=== PATIENT | female | born 1940 | race Caucasian/White ===

== ENCOUNTER 2019-03-20 19:24 | Inpatient (IN) | payer OTHER ==
[~2019-03-20] VITALS: Ht 157.5 cm; Wt 58.6 kg
[2019-03-20 23:10] VITALS: Ht 157.5 cm; Wt 58.6 kg
[2019-03-20 23:20] VITALS: BP 136/65; PULSE 74; RESP 18
[2019-03-20] MEDS ORDERED: ASPI-535 PO (23:31)
[2019-03-20] MEDS ORDERED: METF500T24 PO (23:31)
[2019-03-20] MEDS ORDERED: METO-448 PO (23:31)
[2019-03-20] MEDS ORDERED: LOSA50TA14 PO (23:31)
[2019-03-21] MEDS ORDERED: hydrALAzine 20 MG INJ IV PRN
[2019-03-21] MEDS ORDERED: ONDANSETRON 4 MG INJ IV PRN
[2019-03-21] MEDS ORDERED: ACETAMINOPHEN 325 MG TAB PO PRN
[2019-03-21] MEDS ORDERED: KETOROLAC 15 MG INJ IV PRN
[2019-03-21] MEDS: SOD CHLORIDE 0.9% 1,000 ML IV SCH ×3 (00:48→16:03)
[2019-03-21] MEDS: CEFTRIAXONE 1 GM/50 ML (PMX) 50 ML IVPB SCH ×2 (00:48→23:07)
[2019-03-21] MEDS: morphine 2 MG INJ IV PRN (00:49)
[2019-03-21] MEDS ORDERED: GLUCOSE GEL 15 GRAM TUBE BUCCAL PRN (01:00)
[2019-03-21] MEDS ORDERED: GLUCAGON 1 MG INJ IM PRN (01:00)
[2019-03-21] MEDS ORDERED: GLUCOSE GEL 15 GRAM TUBE PO PRN ×2 (01:00)
[2019-03-21] MEDS ORDERED: DEXTROSE 50% 50 ML SYRINGE IV PRN ×2 (01:00)
[2019-03-21 01:25] VITALS: BP 119/58; PULSE 65; RESP 18
[2019-03-21] MEDS: ACCU-CHEK XX SCH (02:00)
[2019-03-21] MEDS: PANTOPRAZOLE 40 MG INJ IV SCH (06:33)
[2019-03-21 07:55] VITALS: BP 140/65; PULSE 66; RESP 18
[2019-03-21] MEDS: INSULIN ASPART [NOVOLOG] 3 ML PEN SC SCH ×4 (08:00→21:00)
[2019-03-21] MEDS: METOPROLOL 25 MG TAB PO SCH ×3 (08:22→21:08)
[2019-03-21] MEDS ORDERED: ASPIRIN (EC) 81 MG TAB PO SCH (09:00)
--- NOTE | 2019-03-21 12:55 | QN ---
Documentation Comment SEEN AND EXAMINED DOM VIZCAINO MD Mar 21, 2019 12:55
[2019-03-21 13:43] VITALS: BP 124/60; PULSE 72; RESP 18
--- NOTE | 2019-03-21 13:48 | CONS ---
Assessment/Plan Assessment/Plan Hospital Course (Demo Recall) 78-year-old female was visiting her daughter at [facility] and developed severe right flank pain. They took her to the emergency room and underwent a CT scan of the abdomen and pelvis and that showed a right proximal ureteral stone measuring 8 x 7 mm causing moderate right hydroureteronephrosis and right perinephric fat stranding. Patient was transferred to [facility] because of her insurance. The patient states that she also had nausea and vomiting she denies any hematuria she did have a kidney stones before but they were small and she said she passed them. Impression right upper ureteral stone very close to the ureteropelvic junction. Plan: KUB, strain the urine, pain medications, antibiotic. May have to do ureteroscopy and laser lithotripsy and/or extracorporeal shockwave lithotripsy to the stone. Consultation Date/Type/Reason Admit Date/Time Mar 20, 2019 at 22:49 Date of Consultation: Mar 21, 2019 Type of Consult Urology Reason for Consultation Right upper ureteral stone Requesting Provider: DOM VIZCAINO MD Date/Time of Note DATE: 03/21/19 TIME: 13:39 Hx of Present Illness 78-year-old female was visiting her daughter at [facility] and developed severe right flank pain. They took her to the emergency room and underwent a CT scan of the abdomen and pelvis and that showed a right proximal ureteral stone measuring 8 x 7 mm causing moderate right hydroureteronephrosis and right perinephric fat stranding. Patient was transferred to [facility] because of her insurance. The patient states that she also had nausea and vomiting she denies any hematuria she did have a kidney stones before but they were small and she said she passed them. Constitutional: no complaints Eyes: other (History of left eye surgery question retinal detachment) ENT: no complaints Respiratory: no complaints Cardiovascular: no complaints, other (History of cardiac arrhythmias) Gastrointestinal: no complaints Genitourinary: flank pain (Right side) Musculoskeletal: no complaints Skin: no complaints Neurologic: no complaints Endocrine: no complaints Lymphatic: no complaints Immunologic: no complaints Past Medical History Medical History: diabetes, hypertension, other (Cardiac arrhythmias) Home Meds Reported Medications Aspirin Ec (Aspir 81) 81 Mg Tablet.dr, 81 MG PO DAILY, #30 TAB 03/20/19 Metformin Hcl* (Metformin Hcl*) 500 Mg Tablet, 500 MG PO WITH BREAKFAST DINNE, #60 TAB 03/20/19 Losartan Potassium* (Losartan Potassium*) 50 Mg Tablet, 50 MG PO DAILY, TAB 03/20/19 Metoprolol Tartrate* (Lopressor*) 25 Mg Tab, 12.5 MG PO BID, #60 TAB 03/20/19 Medications Current Medications Acetaminophen (Tylenol Tab) 650 mg Q4H PRN PO MILD PAIN(1-3)OR ELEVATED TEMP; Start 03/21/19 at 00:00 Ondansetron HCl (Zofran Inj) 4 mg Q6H PRN IV NAUSEA AND/OR VOMITING Last administered on 03/21/19at 00:48; Admin Dose 4 MG; Start 03/21/19 at 00:00 Morphine Sulfate (morphine) 2 mg Q4H PRN IV SEVERE PAIN LEVEL 7-10 Last a dministered on 03/21/19at 00:49; Admin Dose 2 MG; Start 03/21/19 at 00:00 Pantoprazole (Protonix Iv) 40 mg DAILY@06 IV Last administered on 03/21/19at 06:33; Admin Dose 40 MG; Start 03/21/19 at 06:00 Ceftriaxone Sodium 50 ml @ 100 mls/hr Q24H IVPB Last administered on 03/21/19at 00:48; Admin Dose 100 MLS/HR; Start 03/21/19 at 00:00 Sodium Chloride 1,000 ml @ 70 mls/hr [id number] IV Last administered on 03/21/19at 00:48; Admin Dose 70 MLS/HR; Start 03/21/19 at 00:00 Hydralazine HCl (Apresoline) 10 mg Q6 PRN IV SBP above 170; Start 03/21/19 at 00:00 Diagnostic Test (Pha) (Accu-Chek) 1 ea 02 XX ; Start 03/21/19 at 02:00 Insulin Aspart (Novolog Insulin Pen) NOVOLOG *MILD* ALGORITHM WITH MEALS BE DTIME SC ; Start 03/21/19 at 08:00 Metoprolol Tartrate (Lopressor) 12.5 mg BID PO Last administered on 03/21/19at 08:22; Admin Dose 12.5 MG; Start 03/21/19 at 09:00 Miscellaneous Information 1 ea NOTE XX ; Start 03/21/19 at 01:00 Glucose (Glutose) 15 gm Q15M PRN PO DECREASED GLUCOSE; Start 03/21/19 at 01:00 Glucose (Glutose) 22.5 gm Q15M PRN PO DECREASED GLUCOSE; Start 03/21/19 at 01:00 Dextrose (D50w Syringe) 25 ml Q15M PRN IV DECREASED GLUCOSE; Start 03/21/19 at 01:00 Dextrose (D50w Syringe) 50 ml Q15M PRN IV DECREASED GLUCOSE; Start 03/21/19 at 01:00 Glucagon (Glucagen) 1 mg Q15M PRN IM DECREASED GLUCOSE; Start 03/21/19 at 01:00 Glucose (Glutose) 15 gm Q15M PRN BUCCAL DECREASED GLUCOSE; Start 03/21/19 at 01:00 Tamsulosin HCl (Flomax) 0.4 mg HS PO ; Start 03/21/19 at 21:00 Aspirin (Halfprin) 81 mg DAILY PO ; Start 03/21/19 at 21:00 Allergies: Coded Allergies: No Known Allergy (Unverified , 03/21/19) Past Surgical History Past Surgical Hx: other (Hysterectomy for fibroid left eye surgery for retinal detachment and right foot surgery for bunions) Social History Alcohol Use: none Smoking Status: Never smoker Other Social History She is a 4 para 2 one daughter of breast cancer in 2012 and she had one and 3 normal deliveries Exam/Review of Systems Exam Vitals Vital Signs Date Temp Pulse Resp B/P (MAP) Pulse Ox O2 O2 Flow FiO2 Time Delivery Rate 03/21/19 98.4 66 18 140/65 93 07:55 (90) Intake and Output 03/20/19 03/20/19 03/21/19 1414:59 22:59 06:59 IntakeIntake Total 315 ml BalanceBalance 315 ml Constitutional: alert, oriented Psych: no complaints Head: normocephalic Eyes: nl conjunctiva ENMT: nl external ears & nose Neck: supple, non-tender Respiratory: normal air movement; No wheezing Cardiovascular: No jugular venous distention (JVD) Gastrointestinal: soft Genitourinary - Female: CVA tenderness (Right side) Musculoskeletal: nl extremities to inspection Extremities: No calf tenderness Neurological: nl mental status Skin: nl turgor Lymph: nl lymph nodes Results Result Diagram: 03/21/19 0507 03/21/19 0507 Results 24hrs Laboratory Tests Test 03/21/19 05:07 03/21/19 07:59 03/21/19 12:47 White Blood Count 9.4 Red Blood Count 3.54 L Hemoglobin 10.7 L Hematocrit 32.7 L Mean Corpuscular Volume 92.4 Mean Corpuscular Hemoglobin 30.2 Mean Corpuscular Hemoglobin Concent 32.7 Red Cell Distribution Width 13.1 Platelet Count 233 Mean Platelet Volume 11.2 H Immature Granulocytes % 0.300 Neutrophils % 72.1 Lymphocytes % 18.9 Monocytes % 8.2 Eosinophils % 0.3 Basophils % 0.2 Nucleated Red Blood Cells % 0.0 Immature Granulocytes # 0.030 Neutrophils # 6.8 Lymphocytes # 1.8 Monocytes # 0.8 Eosinophils # 0.0 Basophils # 0.0 Nucleated Red Blood Cells # 0.0 Sodium Level 141 Potassium Level 3.6 Chloride Level 108 Carbon Dioxide Level 27 Anion Gap 6 Blood Urea Nitrogen 27 H Creatinine 1.30 H Est Glomerular Filtrat Rate mL/min Glucose Level 126 Hemoglobin A1c 5.8 Calcium Level 9.3 Total Bilirubin 1.0 Direct Bilirubin 0.00 Indirect Bilirubin 1.0 Aspartate Amino Transf (AST/SGOT) 22 Alanine Aminotransferase (ALT/SGPT) 21 Alkaline Phosphatase 50 Total Protein 6.3 Albumin 3.3 Globulin 3.00 Albumin/Globulin Ratio 1.10 Bedside Glucose [address] scan of the abdomen and pelvis done at [facility] showed right proximal ureteral 8 x 7 mm calculus causing moderate right hydroureteronephrosis and right perinephric fat stranding. Bilateral renal cysts and too small to characterize lesions with the largest on the right 3 cm in the right lower pole renal 5 mm nonobstructing calculus is also seen to the arteries severe tortuosity with mild calcification. Medications Medication Current Medications Acetaminophen (Tylenol Tab) 650 mg Q4H PRN PO MILD PAIN(1-3)OR ELEVATED TEMP; Start 03/21/19 at 00:00 Ondansetron HCl (Zofran Inj) 4 mg Q6H PRN IV NAUSEA AND/OR VOMITING Last administered on 03/21/19at 00:48; Admin Dose 4 MG; Start 03/21/19 at 00:00 Morphine Sulfate (morphine) 2 mg Q4H PRN IV SEVERE PAIN LEVEL 7-10 Last administered on 03/21/19at 00:49; Admin Dose 2 MG; Start 03/21/19 at 00:00 Pantoprazole (Protonix Iv) 40 mg DAILY@06 IV Last administered on 03/21/19at 06:33; Admin Dose 40 MG; Start 03/21/19 at 06:00 Ceftriaxone Sodium 50 ml @ 100 mls/hr Q24H IVPB Last administered on 03/21/19at 00:48; Admin Dose 100 MLS/HR; Start 03/21/19 at 00:00 Sodium Chloride 1,000 ml @ 70 mls/hr [id number] IV Last administered on 03/21/19at 00:48; Admin Dose 70 MLS/HR; Start 03/21/19 at 00:00 Hydralazine HCl (Apresoline) 10 mg Q6 PRN IV SBP above 170; Start 03/21/19 at 00:00 Diagnostic Test (Pha) (Accu-Chek) 1 ea 02 XX ; Start 03/21/19 at 02:00 Insulin Aspart (Novolog Insulin Pen) NOVOLOG *MILD* ALGORITHM WITH MEALS BEDTIME SC ; Start 03/21/19 at 08:00 Metoprolol Tartrate (Lopressor) 12.5 mg BID PO Last administered on 03/21/19at 08:22; Admin Dose 12.5 MG; Start 03/21/19 at 09:00 Miscellaneous Information 1 ea NOTE XX ; Start 03/21/19 at 01:00 Glucose (Glutose) 15 gm Q15M PRN PO DECREASED GLUCOSE; Start 03/21/19 at 01:00 Glucose (Glutose) 22.5 gm Q15M PRN PO DECREASED GLUCOSE; Start 03/21/19 at 01:00 Dextrose (D50w Syringe) 25 ml Q15M PRN IV DECREASED GLUCOSE; Start 03/21/19 at 01:00 Dextrose (D50w Syringe) 50 ml Q15M PRN IV DECREASED GLUCOSE; Start 03/21/19 at 01:00 Glucagon (Glucagen) 1 mg Q15M PRN IM DECREASED GLUCOSE; Start 03/21/19 at 01:00 Glucose (Glutose) 15 gm Q15M PRN BUCCAL DECREASED GLUCOSE; Start 03/21/19 at 01:00 Tamsulosin HCl (Flomax) 0.4 mg HS PO ; Start 03/21/19 at 21:00 Aspirin (Halfprin) 81 mg DAILY PO ; Start 03/21/19 at 21:00 ALEKSANDRA BONNER MD Mar 21, 2019 13:48
--- NOTE | 2019-03-21 16:21 | HP ---
DATE OF ADMISSION: 03/20/2019 CHIEF COMPLAINT: Right flank pain. HISTORY OF PRESENTING ILLNESS: This is a 78-year-old woman with a past medical history of diabetes, hypertension, hyperlipidemia, history of thyroid cyst, history of hysterectomy, who was visiting her daughter in [facility], presented there at the emergency department complaining of sudden onset of r ight flank pain radiating to the front for approximately 1 day. The patient was also having some epi sodes of nausea and vomiting. The patient has had these episodes before also. The patient went to E R at [facility]. White count was 9.92, hemoglobin 12.8, BUN was 30, creatinine 0.8. The patient had CT of the abdomen and pelvis that showed 8.7 mm right proximal ureteral calculus causing moderate right hydronephrosis. A 5 mm right nonobstructing calculus is also seen. The patient was g iven IV fluids, pain control, Zofran, Zosyn and was transferred due to insurance reasons. PAST MEDICAL HISTORY: 1. Diabetes. 2. Hypertension. 3. Hyperlipidemia. 4. Thyroid cyst. 5. History of arrhythmia. ALLERGIES: NONE. PAST SURGICAL HISTORY: Hysterectomy, left foot surgery and left eye surgery due to macular degenerat ion. MEDICATIONS TAKING AT HOME: 1. Losartan 50. 2. Metoprolol 12.5 b.i.d. 3. Aspirin 81. 4. Metformin 500 b.i.d. SOCIAL HISTORY: No history of smoking, alcohol or any drug use. Currently lives at home with her karine emery. FAMILY HISTORY: No history of kidney stones. REVIEW OF SYSTEMS: The patient denies any chest pain, any shortness of breath, any diarrhea, any fev ers, chills. Denies any headache, any blurry vision. Sometimes has joint pains due to osteoarthriti s. Denies any focal neurological deficit. PHYSICAL EXAMINATION: VITAL SIGNS: Currently, blood pressure 140/65, afebrile, heart rate 66, respirations 18. GENERAL: The patient is awake, alert, oriented, does not appear in acute distress. HEENT: Pupils are equal, round, reactive to light. NECK: Supple. No JVD. HEART: Regular rate and rhythm. LUNGS: Clear to auscultation bilaterally. ABDOMEN: Soft, nontender, nondistended. Positive normoactive bowel sounds. The patient has right f lank tenderness. EXTREMITIES: No clubbing, cyanosis or edema. LABORATORY DATA: Showed BUN of 30, creatinine 0.8. White count within normal limits. UA had shown WBCs, 2+ blood. IMAGING: CT of the abdomen and pelvis showed ____ mm proximal right ureteral colic with moderate hyd ronephrosis, 5 mm right renal nonobstructing stone is also seen. ASSESSMENT AND PLAN: This is a 78-year-old female who presented with: 1. Right flank pain with ____ mm right proximal ureteral calculus causing moderate right hydronephro sis and 5 mm right renal nonobstructing calculus. 2. Urinary tract infection. 3. History of hypertension. 4. Diabetes. 5. Hyperlipidemia. 6. Thyroid cyst. 7. Hysterectomy. PLAN: At this period of time, the patient is admitted to med/surg. The patient will be started on p ain control, IV antibiotics, IV fluids. Urology consultation will also be obtained. The patient bouchra l be started on Flomax. The patient was instructed to strain the urine; however the stone is pretty big and will likely need surgical treatment. Dr. Bonner has been consulted. Rest of the treatment will depend on the patient's hospitalization course. Dictated By: DOM VIZCAINO RB/[place] Conf#: [id number] DID#: [id number] CC: ALEKSANDRA BONNER MD; LAUREN DARBY MD;*End*
--- NOTE | 2019-03-21 17:06 | PREAC ---
Date/Time of Note Date/Time of Note DATE: 03/21/19 TIME: 17:05 Anesthesia Eval and Record Evaluation Time Pre-Procedure Interview DATE: 03/21/19 TIME: 17:05 Age 78 Sex female NPO: 8 hrs Preoperative diagnosis right proximal ureteral stone Planned procedure RIGHT URETEROSCOPY AND LASER LITROTRIPSY Past Medical History Past Medical History: Includes Cardio: HTN, Dyslipidemia Endo: Diabetes Surgery & Anesthesia Issues No known issue Meds Anticoagulation: No Beta Usman within 24 hr: Yes Reported Medications Aspirin Ec (Aspir 81) 81 Mg Tablet.dr, 81 MG PO DAILY, #30 TAB 03/20/19 Metformin Hcl* (Metformin Hcl*) 500 Mg Tablet, 500 MG PO WITH BREAKFAST DINNE, #60 TAB 03/20/19 Losartan Potassium* (Losartan Potassium*) 50 Mg Tablet, 50 MG PO DAILY, TAB 03/20/19 Metoprolol Tartrate* (Lopressor*) 25 Mg Tab, 12.5 MG PO BID, #60 TAB 03/20/19 Current Medications Acetaminophen (Tylenol Tab) 650 mg Q4H PRN PO MILD PAIN(1-3)OR ELEVATED TEMP; Start 03/21/19 at 00:00 Ondansetron HCl (Zofran Inj) 4 mg Q6H PRN IV NAUSEA AND/OR VOMITING Last administered on 03/21/19at 00:48; Admin Dose 4 MG; Start 03/21/19 at 00:00 Morphine Sulfate (morphine) 2 mg Q4H PRN IV SEVERE PAIN LEVEL 7-10 Last administered on 03/21/19at 00:49; Admin Dose 2 MG; Start 03/21/19 at 00:00 Pantoprazole (Protonix Iv) 40 mg DAILY@06 IV Last administered on 03/21/19at 06:33; Admin Dose 40 MG; Start 03/21/19 at 06:00 Ceftriaxone Sodium 50 ml @ 100 mls/hr Q24H IVPB Last administered on 03/21/19at 00:48; Admin Dose 100 MLS/HR; Start 03/21/19 at 00:00 Sodium Chloride 1,000 ml @ 70 mls/hr [id number] IV Last administered on 03/21/19at 16:03; Admin Dose 70 MLS/HR; Start 03/21/19 at 00:00 Hydralazine HCl (Apresoline) 10 mg Q6 PRN IV SBP above 170; Start 03/21/19 at 00:00 Diagnostic Test (Pha) (Accu-Chek) 1 ea 02 XX ; Start 03/21/19 at 02:00 Insulin Aspart (Novolog Insulin Pen) NOVOLOG *MILD* ALGORITHM WITH MEALS BEDTIME SC ; Start 03/21/19 at 08:00 Metoprolol Tartrate (Lopressor) 12.5 mg BID PO Last administered on 03/21/19at 08:22; Admin Dose 12.5 MG; Start 03/21/19 at 09:00 Miscellaneous Information 1 ea NOTE XX ; Start 03/21/19 at 01:00 Glucose (Glutose) 15 gm Q15M PRN PO DECREASED GLUCOSE; Start 03/21/19 at 01:00 Glucose (Glutose) 22.5 gm Q15M PRN PO DECREASED GLUCOSE; Start 03/21/19 at 01:00 Dextrose (D50w Syringe) 25 ml Q15M PRN IV DECREASED GLUCOSE; Start 03/21/19 at 01:00 Dextrose (D50w Syringe) 50 ml Q15M PRN IV DECREASED GLUCOSE; Start 03/21/19 at 01:00 Glucagon (Glucagen) 1 mg Q15M PRN IM DECREASED GLUCOSE; Start 03/21/19 at 01:00 Glucose (Glutose) 15 gm Q15M PRN BUCCAL DECREASED GLUCOSE; Start 03/21/19 at 01:00 Tamsulosin HCl (Flomax) 0.4 mg HS PO ; Start 03/21/19 at 21:00 Aspirin (Halfprin) 81 mg DAILY PO ; Start 03/21/19 at 21:00 Meds reviewed: Yes Allergies Coded Allergies: No Known Allergy (Unverified , 03/21/19) Allergies Reviewed: Yes Labs/Studies Labs Reviewed: Reviewed by anesthesiologist Result Diagram: 03/21/19 0507 03/21/19 0507 Laboratory Tests 03/21/19 05:07 test: N/A Pre-procedure Exam Last vitals Vital Signs Date Temp Pulse Resp B/P (MAP) Pulse Ox O2 O2 Flow FiO2 Time Delivery Rate 03/21/19 98.0 72 18 124/60 94 13:43 (81) Airway: Adequate mouth opening Mallampati: Mallampati II Teeth: Normal Lung: Normal Heart: Normal ASA Physical Status ASA physical status: 2 Emergency: None Planned Anesthetic General/MAC: ETT Pre-operative Attestations Prior to commencing anesthesia and surgery, the patient was re-evaluated, there was verification of: *The patient's identity *The results of appropriate recent lab work and preoperative vital signs *The above evaluation not changing prior to induction *Anesthetic plan, risk benefits, alternative and complications discussed with patient/family; questions answered; patient/family understands, accepts and wishes to proceed. JOVANNI NICHOLS Mar 21, 2019 17:06
[2019-03-21 20:00] VITALS: BP 105/65; PULSE 75
[2019-03-21] MEDS: ASPIRIN (EC) 81 MG TAB PO SCH (20:26)
[2019-03-21] MEDS: TAMSULOSIN (SR) 0.4 MG CAP PO SCH (21:02)
[2019-03-22] VITALS (22 sets, daily range): BP systolic 125–165; BP diastolic 63–74; PULSE 60–72; RESP 13–24
[2019-03-22] MEDS: ACCU-CHEK XX SCH (02:00)
[2019-03-22] MEDS: SOD CHLORIDE 0.9% 1,000 ML IV SCH ×3 (04:03→18:54)
[2019-03-22] MEDS: PANTOPRAZOLE 40 MG INJ IV SCH (05:32)
[2019-03-22] MEDS: INSULIN ASPART [NOVOLOG] 3 ML PEN SC SCH ×4 (08:00→22:10)
[2019-03-22] MEDS: METOPROLOL 25 MG TAB PO SCH ×2 (08:22→21:00)
[2019-03-22] MEDS: morphine 2 MG INJ IV PRN (09:01)
[2019-03-22] MEDS ORDERED: morphine 2 MG INJ IV STA (10:24)
--- NOTE | 2019-03-22 15:53 | RADRPT ---
Vent Rate: 72 bpm RR Interval: 0 msec GA Interval: 132 msec QRS Duration: 98 msec QT Interval: 368 msec QTC Interval: 402 msec P-R-T [place]: 49 - 50 - 30 degrees Normal sinus rhythm Normal ECG Electronically Signed By: Anthony Vázquez
--- NOTE | 2019-03-22 16:56 | PN ---
Date/Time of Note Date/Time of Note DATE: 03/22/19 TIME: 16:54 Assessment/Plan VTE Prophylaxis Risk score (from Ns)>0 risk: 4 SCD applied (from Ns): Yes Pharmacological prophylaxis: NA/contraindicated Pharm contraindication: low risk/ambulating Lines/Catheters IV Catheter Type (from Nrsg): Peripheral IV Urinary Cath still in place: No Assessment/Plan Assessment/Plan This is a 78-year-old female who presented with: 1. Right flank pain with 8 x7 mm right proximal ureteral calculus causing moderate right hydronephrosis and 5 mm right renal nonobstructing calculus. 2. Urinary tract infection. 3. History of hypertension. 4. Diabetes. 5. Hyperlipidemia. 6. Thyroid cyst. 7. Hysterectomy. 8 Lorin likely secondary to obstruction/stone Plan -pain Control will give morphine, cannot give Toradol due to LORIN -Treated with IV fluids -With Rocephin -Continue with aspirin statin metoprolol -Cystoscopy today Result Diagram: 03/21/19 0507 03/22/19 1035 Results 24hrs Laboratory Tests Test 03/21/19 17:24 03/21/19 17:47 03/21/19 21:03 03/21/19 21:04 Bedside Glucose 117 123 184 175 Test 03/22/19 05:12 03/22/19 08:22 03/22/19 10:35 03/22/19 13:19 Prothrombin Time 13.2 Prothrombin Time 1.0 Ratio INR International 0.99 Normalized Ratio Activated 27.4 Partial Thromboplast Time Bedside Glucose 127 102 Sodium Level 142 Potassium Level 3.6 Chloride Level 108 Carbon Dioxide Level 26 Anion Gap 8 Blood Urea Nitrogen 22 H Creatinine 1.16 H Est Glomerular Filtrat Rate mL/min Glucose Level 123 Calcium Level 9.5 Subjective 24 Hr Interval Summary Free Text/Dictation Pain in the right flank. Exam/Review of Systems Exam Vitals Vital Signs Date Temp Pulse Resp B/P (MAP) Pulse Ox O2 O2 Flow FiO2 Time Delivery Rate 03/22/19 98.6 71 18 129/72 92 14:26 (91) Intake and Output 03/21/19 03/21/19 03/22/19 1515:00 23:00 07:00 IntakeIntake Total 1320 ml 1245 ml 400 ml OutputOutput Total 1350 ml 800 ml BalanceBalance -30 ml 445 ml 400 ml Exam GENERAL: The patient is awake, alert, oriented, does not appear in acute distress. HEENT: Pupils are equal, round, reactive to light. NECK: Supple. No JVD. HEART: Regular rate and rhythm. LUNGS: Clear to auscultation bilaterally. ABDOMEN: Soft, nontender, nondistended. Positive normoactive bowel sounds. The patient has right flank tenderness. EXTREMITIES: No clubbing, cyanosis or edema. Results Results 24hrs Laboratory Tests Test 03/21/19 17:24 03/21/19 17:47 03/21/19 21:03 03/21/19 21:04 Bedside Glucose 117 123 184 175 Test 03/22/19 05:12 03/22/19 08:22 03/22/19 10:35 03/22/19 13:19 Prothrombin Time 13.2 Prothrombin Time 1.0 Ratio INR International 0.99 Normalized Ratio Activated 27.4 Partial Thromboplast Time Bedside Glucose 127 102 Sodium Level 142 Potassium Level 3.6 Chloride Level 108 Carbon Dioxide Level 26 Anion Gap 8 Blood Urea Nitrogen 22 H Creatinine 1.16 H Est Glomerular Filtrat Rate mL/min Glucose Level 123 Calcium Level 9.5 Medications Medication Current Medications Acetaminophen (Tylenol Tab) 650 mg Q4H PRN PO MILD PAIN(1-3)OR ELEVATED TEMP; Start 03/21/19 at 00:00 Ondansetron HCl (Zofran Inj) 4 mg Q6H PRN IV NAUSEA AND/OR VOMITING Last administered on 03/21/19at 00:48; Admin Dose 4 MG; Start 03/21/19 at 00:00 Morphine Sulfate (morphine) 2 mg Q4H PRN IV SEVERE PAIN LEVEL 7-10 Last administered on 03/22/19at 09:01; Admin Dose 2 MG; Start 03/21/19 at 00:00 Pantoprazole (Protonix Iv) 40 mg DAILY@06 IV Last administered on 03/22/19at 05:32; Admin Dose 40 MG; Start 03/21/19 at 06:00 Ceftriaxone Sodium 50 ml @ 100 mls/hr Q24H IVPB Last administered on 03/21/19at 23:07; Admin Dose 100 MLS/HR; Start 03/21/19 at 00:00 Sodium Chloride 1,000 ml @ 70 mls/hr [id number] IV Last administered on 03/22/19at 10:56; Admin Dose 70 MLS/HR; Start 03/21/19 at 00:00 Hydralazine HCl (Apresoline) 10 mg Q6 PRN IV SBP above 170; Start 03/21/19 at 00:00 Diagnostic Test (Pha) (Accu-Chek) 1 ea 02 XX ; Start 03/21/19 at 02:00 Insulin Aspart (Novolog Insulin Pen) NOVOLOG *MILD* ALGORITHM WITH MEALS BEDTIME SC ; Start 03/21/19 at 08:00 Metoprolol Tartrate (Lopressor) 12.5 mg BID PO Last administered on 03/21/19at 21:08; Admin Dose 12.5 MG; Start 03/21/19 at 09:00 Miscellaneous Information 1 ea NOTE XX ; Start 03/21/19 at 01:00 Glucose (Glutose) 15 gm Q15M PRN PO DECREASED GLUCOSE; Start 03/21/19 at 01:00 Glucose (Glutose) 22.5 gm Q15M PRN PO DECREASED GLUCOSE; Start 03/21/19 at 01:00 Dextrose (D50w Syringe) 25 ml Q15M PRN IV DECREASED GLUCOSE; Start 03/21/19 at 01:00 Dextrose (D50w Syringe) 50 ml Q15M PRN IV DECREASED GLUCOSE; Start 03/21/19 at 01:00 Glucagon (Glucagen) 1 mg Q15M PRN IM DECREASED GLUCOSE; Start 03/21/19 at 01:00 Glucose (Glutose) 15 gm Q15M PRN BUCCAL DECREASED GLUCOSE; Start 03/21/19 at 01:00 Tamsulosin HCl (Flomax) 0.4 mg HS PO Last administered on 03/21/19at 21:02; Admin Dose 0.4 MG; Start 03/21/19 at 21:00 Aspirin (Halfprin) 81 mg DAILY PO ; Start 03/21/19 at 21:00 DOM VIZCAINO MD Mar 22, 2019 16:56
[2019-03-22] MEDS ORDERED: ROCURONIUM 50 MG INJ ONE (18:15)
[2019-03-22] MEDS ORDERED: FENTAnyl 50 MCG/ML VIAL ONE (18:15)
[2019-03-22] MEDS ORDERED: CEFAZOLIN 1 GM INJ ONE (18:15)
[2019-03-22] MEDS ORDERED: MIDAZOLAM 1 MG/ML 2 ML INJ ONE (18:15)
[2019-03-22] MEDS ORDERED: PROPOFOL 20 ML ONE (18:15)
--- NOTE | 2019-03-22 18:28 | HPN ---
Date/Time of Note Date/Time of Note DATE: 03/22/19 TIME: 18:27 Interval H&P Admission Note Pt. seen H&P reviewed: No system changes ALEKSANDRA BONNER MD Mar 22, 2019 18:27
[2019-03-22] MEDS ORDERED: IOHEXOL 300MG/ML 30 ML BTL ONE (19:15)
[2019-03-22] MEDS ORDERED: METOPROLOL 5 MG INJ ONE (19:24)
[2019-03-22] MEDS ORDERED: HYDROmorphONE 1 MG/5 ML IV SYRINGE IV PRN ×3 (19:30)
[2019-03-22] MEDS ORDERED: LABETALOL HCL 20MG INJ IV PRN (19:30)
[2019-03-22] MEDS ORDERED: EPHEDrine SULFATE 50 MG/5 ML SYG IV PRN (19:30)
[2019-03-22] MEDS ORDERED: hydrALAzine 20 MG INJ IV PRN (19:30)
[2019-03-22] MEDS ORDERED: DIPHENHYDRAMINE 50 MG INJ IV PRN (19:30)
[2019-03-22] MEDS ORDERED: FENTAnyl 50 MCG/ML VIAL IV PRN ×3 (19:30)
[2019-03-22] MEDS ORDERED: ONDANSETRON 4 MG INJ IV PRN (19:30)
[2019-03-22] MEDS ORDERED: OXYCODONE/ACETAMINOPHEN (5/325) TAB PO PRN (19:30)
[2019-03-22] MEDS ORDERED: MEPERIDINE 25 MG INJ IV PRN (19:30)
[2019-03-22] MEDS ORDERED: DEXAMETHASONE 4 MG/ML 5 ML INJ ONE (19:54)
[2019-03-22] MEDS ORDERED: PHENYLephrine (100 MCG/ML) 10ML SYG ONE (19:54)
[2019-03-22] MEDS ORDERED: ONDANSETRON 4 MG INJ ONE (19:54)
[2019-03-22] MEDS: ASPIRIN (EC) 81 MG TAB PO SCH (21:00)
[2019-03-22] MEDS: TAMSULOSIN (SR) 0.4 MG CAP PO SCH (21:00)
[2019-03-22] MEDS ORDERED: SUGAMMADEX SODIUM 200 MG/2 ML VIAL IV ONE (21:55)
--- NOTE | 2019-03-22 22:19 | PAC ---
Date/Time of Note Date/Time of Note DATE: 03/22/19 TIME: 22:19 Post-Anesthesia Notes Post-Anesthesia Note Last documented vital signs Vital Signs Date Temp Pulse Resp B/P (MAP) Pulse Ox O2 O2 Flow FiO2 Time Delivery Rate 03/22/19 98.6 71 18 129/72 100 face mask 22:16 (91) Activity: WNL Respiratory function: WNL Cardiovascular function: WNL Mental status: Baseline Pain reasonably controlled: Yes Hydration appropriate: Yes Nausea/Vomiting absent: Yes KEDAR JACINTO MD Mar 22, 2019 22:19
--- NOTE | 2019-03-22 22:27 | OPR ---
Date/Time of Note Date/Time of Note DATE: 03/22/19 TIME: 22:12 Operative Report Procedure Date: Mar 22, 2019 Preoperative Diagnosis Right upper ureteral stone and right renal stone Postoperative Diagnosis Same Operation/Procedure Performed Cystoscopy right ureteral pyeloscopy, laser lithotripsy and insertion of right ureteral JJ stent Surgeon see signature line Typing Checker Carlos Carnes Anesthesia Type: general Anesthesiologist: KEDAR JACINTO MD Estimated Blood Loss: minimal Transfusion none Specimen Right ureteral and renal stone fragments Grafts/Implants none Complications none Pt Condition Post Procedure: stable Disposition: PACU Indications Right upper ureteral stone with obstruction Procedure Description Shunt was brought to the operating room and given general anesthesia. Timeout was done and the patient was identified by her name, birthdate, the procedure and the side of the procedure. Patient received 2 g of Ancef IV at the start of the procedure. She was positioned in the lithotomy position and the genital area was prepped and draped in the usual sterile manner. #22 Somali cystoscope sheath was introduced into the bladder and urine was collected for culture and sensitivity. The right ureteral orifice was then visualized and cannulated with a 5 Somali open ended ureteral catheter. Fluoroscopy was done and the stone in the upper right ureter was visualized. A 0.035 zip wire was passed through the open ended and under fluoroscopy advanced to the level of the stone then with some manipulation it did advance up to the kidney. The cystoscope was then removed leaving the zip wire in place. I then used a dual-lumen ureteral catheter and advanced it on the zip wire to the level of the stone and then passed a 0.035 sensor wire and under fluoroscopy advanced into the kidney as well. Then I removed the dual-lumen. The sensor wire was used as a safety wire. The patient does have severe scoliosis and but it appeared from the tortuosity of the ureter it would be very difficult to use a rigid ureteroscope. Therefore I decided to put an access sheath and used the flexible digital ureteroscope. I did advance and access sheath 11 x 13 mm diameter and a 28 cm long on the zip wire and under fluoroscopy it did go up above the sacroiliac joint area. Then I passed the flexible ureteroscope and visualize a stone in the ureter. Then I used the 200 m holmium laser fiber and as I try to break the stone in the ureter it did migrate back into the kidney. I followed it to the kidney and was able to visualize it as well as the other stone that the patient had in her kidney. Then I used the holmium laser and broke the stones into numerous smaller pieces. I after that basketed many of the stone fragments out of the kidney. There are small pieces that the patient should be able to pass them on her own. There were a lot of dark urine and sediment in the kidney which I aspirated at the start and send it for culture. This was a difficult procedure because of the scoliosis that she had. At the end of the procedure I removed the access sheath and used a sensor wire to insert a 6 Somali by 22 cm l mesha JJ stent. The proximal end of it curled into the kidney and the distal end curled into the bladder. I decided to leave the stent and without the string going to the outside as this patient may have problems with pain and edema that require the stent to be left and longer that 3 or 4 days. I will need to do a cystoscopy on her later on in about 3 to 4 weeks to remove the JJ stent and at that time we will do a CAT scan to see if there is any residual stone that needs to be treated. The patient tolerated the procedure well and was transferred to the recovery room in a stable and satisfactory condition. ALEKSANDRA BONNER MD Mar 22, 2019 22:27
[2019-03-23] VITALS (10 sets, daily range): BP systolic 129–169; BP diastolic 60–77; PULSE 55–74; RESP 16–19
[2019-03-23] MEDS: CEFTRIAXONE 1 GM/50 ML (PMX) 50 ML IVPB SCH (00:08)
[2019-03-23] MEDS: ACCU-CHEK XX SCH (01:03)
[2019-03-23] MEDS: PANTOPRAZOLE 40 MG INJ IV SCH (05:33)
[2019-03-23] MEDS: METOPROLOL 25 MG TAB PO SCH (08:07)
[2019-03-23] MEDS: ASPIRIN (EC) 81 MG TAB PO SCH (08:07)
[2019-03-23] MEDS: INSULIN ASPART [NOVOLOG] 3 ML PEN SC SCH ×3 (08:08→17:43)
[2019-03-23] MEDS: SOD CHLORIDE 0.9% 1,000 ML IV SCH (10:39)
[2019-03-23] MEDS ORDERED: NA PHOSPHATE/BIPHOS 133 ML ENEMA PR PRN (16:00)
--- NOTE | 2019-03-23 16:21 | PN ---
Date/Time of Note Date/Time of Note DATE: 03/23/19 TIME: 16:17 Assessment/Plan VTE Prophylaxis Risk score (from Ns)>0 risk: 5 SCD applied (from Ns): Yes Pharmacological prophylaxis: LMWH Lines/Catheters IV Catheter Type (from Nrs): Peripheral IV Urinary Cath still in place: No Assessment/Plan Hospital Course 1. Right flank pain with 8 x7 mm right proximal ureteral calculus causing moderate right hydronephrosis and 5 mm right renal nonobstructing calculus. S/p cystoscopy by dr Lainez and stent placement 2. Urinary tract infection. 3. History of hypertension. 4. Diabetes. 5. Hyperlipidemia. 6. Thyroid cyst. 7. Hx of hysterectomy. 8 LORIN likely secondary to obstruction/stone, resolved 9. S/p left eye surgery due to macular degeneration Assessment/Plan -pain Control will give morphine -DVT prophylaxis start Lovenox GI proph. Protonix -stop IV fluids -c/With Rocephin -Continue with aspirin statin metoprolol -Cystoscopy done, director case management to authorize seeing Dr Lainez outpatient for stent removal Result Diagram: 03/23/1951703/23/19517 Results 24hrs Laboratory Tests Test 03/22/19 17:47 03/22/19 22:08 03/23/19 05:18 03/23/19 08:03 Bedside Glucose 104 126 151 White Blood Count 6.2 # Red Blood Count 3.48 L Hemoglobin 10.6 L Hematocrit 32.2 L Mean Corpuscular 92.5 Volume Mean Corpuscular 30.5 Hemoglobin Mean Corpuscular 32.9 Hemoglobin Concent Red Cell 12.7 Distribution Width Platelet Count 230 Mean Platelet Volume 11.0 H Immature 0.200 Granulocytes % Neutrophils % 88.8 H Lymphocytes % 9.9 L Monocytes % 1.1 Eosinophils % 0.0 Basophils % 0.0 Nucleated Red Blood 0.0 Cells % Immature 0.010 Granulocytes # Neutrophils # 5.5 Lymphocytes # 0.6 L Monocytes # 0.1 L Eosinophils # 0.0 Basophils # 0.0 Nucleated Red Blood 0.0 Cells # Sodium Level 146 H Potassium Level 3.7 Chloride Level 113 H Carbon Dioxide Level 24 Anion Gap 9 Blood Urea Nitrogen 22 H Creatinine 0.82 Est Glomerular Filtrat Rate mL/min Glucose Level 152 Calcium Level 9.1 Phosphorus Level 4.3 Magnesium Level 1.9 Test 03/23/19 12:25 Bedside Glucose 164 Subjective 24 Hr Interval Summary Gastrointestinal: no complaints, pain, blood, constipation, decreased appetite, diarrhea, flatus, nausea, passing stool, vomiting, other Genitourinary: flank pain; No no complaints, No bleeding, No dysuria, No discharge, No hematuria, No other Exam/Review of Systems Exam Vitals Vital Signs Date Temp Pulse Resp B/P (MAP) Pulse Ox O2 O2 Flow FiO2 Time Delivery Rate 03/23/19 97.6 60 19 169/72 93 07:38 (104) 03/22/19 Nasal 2.0 23:50 Cannula Intake and Output 03/22/19 03/22/19 03/23/19 1515:00 23:00 07:00 IntakeIntake Total 500 ml 2000 ml 550 ml OutputOutput Total 500 ml BalanceBalance 500 ml 1500 ml 550 ml Constitutional: alert, oriented Neck: supple Respiratory: clear to auscultation Cardiovascular: regular rate and rhythm Gastrointestinal: soft Genitourinary - Female: CVA tenderness; No nl adnexae, No nl external genitalia, No CMT, No uterus, No other Results Results 24hrs Laboratory Tests Test 03/22/19 17:47 03/22/19 22:08 03/23/19 05:18 03/23/19 08:03 Bedside Glucose 104 126 151 White Blood Count 6.2 # Red Blood Count 3.48 L Hemoglobin 10.6 L Hematocrit 32.2 L Mean Corpuscular 92.5 Volume Mean Corpuscular 30.5 Hemoglobin Mean Corpuscular 32.9 Hemoglobin Concent Red Cell 12.7 Distribution Width Platelet Count 230 Mean Platelet Volume 11.0 H Immature 0.200 Granulocytes % Neutrophils % 88.8 H Lymphocytes % 9.9 L Monocytes % 1.1 Eosinophils % 0.0 Basophils % 0.0 Nucleated Red Blood 0.0 Cells % Immature 0.010 Granulocytes # Neutrophils # 5.5 Lymphocytes # 0.6 L Monocytes # 0.1 L Eosinophils # 0.0 Basophils # 0.0 Nucleated Red Blood 0.0 Cells # Sodium Level 146 H Potassium Level 3.7 Chloride Level 113 H Carbon Dioxide Level 24 Anion Gap 9 Blood Urea Nitrogen 22 H Creatinine 0.82 Est Glomerular Filtrat Rate mL/min Glucose Level 152 Calcium Level 9.1 Phosphorus Level 4.3 Magnesium Level 1.9 Test 03/23/19 12:25 Bedside Glucose 164 Medications Medication Current Medications Acetaminophen (Tylenol Tab) 650 mg Q4H PRN PO MILD PAIN(1-3)OR ELEVATED TEMP; Start 03/21/19 at 00:00 Ondansetron HCl (Zofran Inj) 4 mg Q6H PRN IV NAUSEA AND/OR VOMITING Last administered on 03/21/19at 00:48; Admin Dose 4 MG; Start 03/21/19 at 00:00 Morphine Sulfate (morphine) 2 mg Q4H PRN IV SEVERE PAIN LEVEL 7-10 Last administered on 03/22/19at 09:01; Admin Dose 2 MG; Start 03/21/19 at 00:00 Pantoprazole (Protonix Iv) 40 mg DAILY@06 IV Last administered on 03/23/19at 05:33; Admin Dose 40 MG; Start 03/21/19 at 06:00 Ceftriaxone Sodium 50 ml @ 100 mls/hr Q24H IVPB Last administered on 03/23/19at 00:08; Admin Dose 100 MLS/HR; Start 03/21/19 at 00:00 Sodium Chloride 1,000 ml @ 70 mls/hr [id number] IV Last administered on 03/23/19at 10:39; Admin Dose 70 MLS/HR; Start 03/21/19 at 00:00 Hydralazine HCl (Apresoline) 10 mg Q6 PRN IV SBP above 170; Start 03/21/19 at 00:00 Diagnostic Test (Pha) (Accu-Chek) 1 ea 02 XX ; Start 03/21/19 at 02:00 Insulin Aspart (Novolog Insulin Pen) NOVOLOG *MILD* ALGORITHM WITH MEALS BEDTIME SC Last administered on 03/23/19at 12:28; Admin Dose 1 UNIT; Start 03/21/19 at 08:00 Metoprolol Tartrate (Lopressor) 12.5 mg BID PO Last administered on 03/23/19at 08:07; Admin Dose 12.5 MG; Start 03/21/19 at 09:00 Miscellaneous Information 1 ea NOTE XX ; Start 03/21/19 at 01:00 Glucose (Glutose) 15 gm Q15M PRN PO DECREASED GLUCOSE; Start 03/21/19 at 01:00 Glucose (Glutose) 22.5 gm Q15M PRN PO DECREASED GLUCOSE; Start 03/21/19 at 0 1:00 Dextrose (D50w Syringe) 25 ml Q15M PRN IV DECREASED GLUCOSE; Start 03/21/19 at 01:00 Dextrose (D50w Syringe) 50 ml Q15M PRN IV DECREASED GLUCOSE; Start 03/21/19 at 01:00 Glucagon (Glucagen) 1 mg Q15M PRN IM DECREASED GLUCOSE; Start 03/21/19 at 01:00 Glucose (Glutose) 15 gm Q15M PRN BUCCAL DECREASED GLUCOSE; Start 03/21/19 at 01:00 Tamsulosin HCl (Flomax) 0.4 mg HS PO Last administered on 03/21/19at 21:02; Admin Dose 0.4 MG; Start 03/21/19 at 21:00 Aspirin (Halfprin) 81 mg DAILY PO Last administered on 03/23/19at 08:07; Admin Dose 81 MG; Start 03/21/19 at 21:00 Sodium Biphosphate/ Sodium Phosphate (Fleet Enema) 133 ml DAILY PRN [place] CONSTIPATION; Start 03/23/19 at 16:00; Status UNV Senna (Senokot) 1 tab DAILY PO ; Start 03/24/19 at 09:00; Status JOY WAHL Mar 23, 2019 16:21
--- NOTE | 2019-03-23 18:11 | PDOCDIS ---
Discharge Instructions CONDITION [id number] Patient Condition: [id number] Stable HOME CARE INSTRUCTIONS: [id number] Diet Instructions: [id number] Reduced Sodium ACTIVITY: [id number] Activity Restrictions: [id number] Slowly Increase Activity FOLLOW UP/APPOINTMENTS Follow-up Plan see own pcp [address] hodges 4 wks LAUREN DARBY MD Mar 23, 2019 18:11
[2019-03-23] MEDS ORDERED: ASPI-1044 PO (18:14)
[2019-03-23] MEDS ORDERED: TAMS-14 PO (18:14)
[2019-03-23] MEDS ORDERED: ACET325T33 PO (18:14)
[2019-03-23] MEDS ORDERED: SENN-120 PO (18:14)
--- NOTE | 2019-03-23 19:21 | CONS ---
Consult Date/Type/Reason Admit Date/Time Mar 20, 2019 at 22:49 Initial Consult Date 03/21/19 Type of Consultation: Urology Reason for Consultation Right upper ureteral and right renal stones Requesting Provider: DOM VIZCAINO MD Date/Time of Note DATE: 03/23/19 TIME: 19:17 Subjective Patient is feeling much better. She has no pain. And she is voiding well Objective Vitals Vital Signs Date Temp Pulse Resp B/P (MAP) Pulse Ox O2 O2 Flow FiO2 Time Delivery Rate 03/23/19 97.9 67 18 132/63 96 Nasal 14:05 (86) Cannula 03/22/19 2.0 23:50 Intake and Output 03/22/19 03/22/19 03/23/19 1515:00 23:00 07:00 IntakeIntake Total 500 ml 2000 ml 550 ml OutputOutput Total 500 ml BalanceBalance 500 ml 1500 ml 550 ml Exam Abdomen is soft, there is no flank tenderness. Results/Medications Result Diagram: 03/23/1951703/23/19517 Results 24 hrs Laboratory Tests Test 03/22/19 22:08 03/23/19 05:18 03/23/19 08:03 03/23/19 12:25 Bedside Glucose 126 151 164 White Blood Count 6.2 # Red Blood Count 3.48 L Hemoglobin 10.6 L Hematocrit 32.2 L Mean Corpuscular 92.5 Volume Mean Corpuscular 30.5 Hemoglobin Mean Corpuscular 32.9 Hemoglobin Concent Red Cell 12.7 Distribution Width Platelet Count 230 Mean Platelet Volume 11.0 H Immature 0.200 Granulocytes % Neutrophils % 88.8 H Lymphocytes % 9.9 L Monocytes % 1.1 Eosinophils % 0.0 Basophils % 0.0 Nucleated Red Blood 0.0 Cells % Immature 0.010 Granulocytes # Neutrophils # 5.5 Lymphocytes # 0.6 L Monocytes # 0.1 L Eosinophils # 0.0 Basophils # 0.0 Nucleated Red Blood 0.0 Cells # Sodium Level 146 H Potassium Level 3.7 Chloride Level 113 H Carbon Dioxide Level 24 Anion Gap 9 Blood Urea Nitrogen 22 H Creatinine 0.82 Est Glomerular Filtrat Rate mL/min Glucose Level 152 Calcium Level 9.1 Phosphorus Level 4.3 Magnesium Level 1.9 Test 03/23/19 17:40 Bedside Glucose 156 Home Meds Active Scripts Sennosides* (Senna Lax*) 8.6 Mg Tablet, 1 TAB PO DAILY for 14 Days, TAB Prov:LAUREN DARBY MD 03/23/19 Aspirin Delayed Release (Aspirin Delayed Release) 81 Mg Tablet.dr, 81 MG PO DAILY for 28 Days, #30 Prov:LAUREN DARBY MD 03/23/19 Acetaminophen* (Tylenol*) 325 Mg Tablet, 650 MG PO Q4H PRN for MILD PAIN(1-3)OR ELEVATED TEMP for 10 Days, TAB Prov:LAUREN DARBY MD 03/23/19 Tamsulosin Hcl* (Flomax*) 0.4 Mg Cap.er.24h, 0.4 MG PO HS for 28 Days, CAP Prov:LAUREN DARBY MD 03/23/19 Reported Medications Aspirin Ec (Aspir 81) 81 Mg Tablet.dr, 81 MG PO DAILY, #30 TAB 03/20/19 Metformin Hcl* (Metformin Hcl*) 500 Mg Tablet, 500 MG PO WITH BREAKFAST DINNE, #60 TAB 03/20/19 Losartan Potassium* (Losartan Potassium*) 50 Mg Tablet, 50 MG PO DAILY, TAB 03/20/19 Metoprolol Tartrate* (Lopressor*) 25 Mg Tab, 12.5 MG PO BID, #60 TAB 03/20/19 Medications Current Medications Acetaminophen (Tylenol Tab) 650 mg Q4H PRN PO MILD PAIN(1-3)OR ELEVATED TEMP; Start 03/21/19 at 00:00 Ondansetron HCl (Zofran Inj) 4 mg Q6H PRN IV NAUSEA AND/OR VOMITING Last administered on 03/21/19at 00:48; Admin Dose 4 MG; Start 03/21/19 at 00:00 Morphine Sulfate (morphine) 2 mg Q4H PRN IV SEVERE PAIN LEVEL 7-10 Last administered on 03/22/19at 09:01; Admin Dose 2 MG; Start 03/21/19 at 00:00 Ceftriaxone Sodium 50 ml @ 100 mls/hr Q24H IVPB Last administered on 03/23/19at 00:08; Admin Dose 100 MLS/HR; Start 03/21/19 at 00:00 Hydralazine HCl (Apresoline) 10 mg Q6 PRN IV SBP above 170; Start 03/21/19 at 00:00 Diagnostic Test (Pha) (Accu-Chek) 1 ea 02 XX ; Start 03/21/19 at 02:00 Insulin Aspart (Novolog Insulin Pen) NOVOLOG *MILD* ALGORITHM WITH MEALS BEDTIM E SC Last administered on 03/23/19at 17:43; Admin Dose 1 UNIT; Start 03/21/19 at 08:00 Metoprolol Tartrate (Lopressor) 12.5 mg BID PO Last administered on 03/23/19at 08:07; Admin Dose 12.5 MG; Start 03/21/19 at 09:00 Miscellaneous Information 1 ea NOTE XX ; Start 03/21/19 at 01:00 Glucose (Glutose) 15 gm Q15M PRN PO DECREASED GLUCOSE; Start 03/21/19 at 01:00 Glucose (Glutose) 22.5 gm Q15M PRN PO DECREASED GLUCOSE; Start 03/21/19 at 01:00 Dextrose (D50w Syringe) 25 ml Q15M PRN IV DECREASED GLUCOSE; Start 03/21/19 at 01:00 Dextrose (D50w Syringe) 50 ml Q15M PRN IV DECREASED GLUCOSE; Start 03/21/19 at 01:00 Glucagon (Glucagen) 1 mg Q15M PRN IM DECREASED GLUCOSE; Start 03/21/19 at 01:00 Glucose (Glutose) 15 gm Q15M PRN BUCCAL DECREASED GLUCOSE; Start 03/21/19 at 01:00 Tamsulosin HCl (Flomax) 0.4 mg HS PO Last administered on 03/21/19at 21:02; Admin Dose 0.4 MG; Start 03/21/19 at 21:00 Aspirin (Halfprin) 81 mg DAILY PO Last administered on 03/23/19at 08:07; Admin Dose 81 MG; Start 03/21/19 at 21:00 Sodium Biphosphate/ Sodium Phosphate (Fleet Enema) 133 ml DAILY PRN [place] CONSTIPATION Last administered on 03/23/19at 16:56; Admin Dose 133 ML; Start 03/23/19 at 16:00 Senna (Senokot) 1 tab DAILY PO ; Start 03/24/19 at 09:00 Pantoprazole (Protonix Tab) 40 mg DAILY@06 PO ; Start 03/24/19 at 06:00 Enoxaparin Sodium (Lovenox) 40 mg DAILY SC ; Start 03/24/19 at 09:00 Assessment/Plan Hospital Course (Demo Recall) 78-year-old female was visiting her daughter at [facility] and developed severe right flank pain. They took her to the emergency room and underwent a CT scan of the abdomen and pelvis and that showed a right proximal ureteral stone measuring 8 x 7 mm causing moderate right hydroureteronephrosis and right perinephric fat stranding. Patient was transferred to [facility] because of her insurance. The patient stated that she also had nausea and vomiting. She denied any hematuria. She did have a kidney stones before but they were small and she said she passed them. Patient underwent right ureteroscopy and laser lithotripsy on 03/22/2019 and she had a JJ stent in the right ureter placed. She is doing well today and has minimal pain. She is afebrile and voiding well. She may be discharged and follow-up with my office in about 3 to 4 weeks. I did talk to her daughter on the phone and instructed her that she will need to come into the office and we may have to repeat her CAT scan to make sure there are no residual stones that may need further treatment then I could do a cystoscopy and remove the JJ stent in the office. ALEKSANDRA BONNER MD Mar 23, 2019 19:21
[2019-03-24] MEDS ORDERED: PANTOPRAZOLE (EC) 40 MG TAB PO SCH (06:00)
[2019-03-24] MEDS ORDERED: SENNA TAB PO SCH (09:00)
[2019-03-24] MEDS ORDERED: ENOXAPARIN 40 MG/0.4 ML SYG SC SCH (09:00)
--- NOTE | 2019-03-25 12:02 | QN ---
Documentation Comment [id number] LAUREN DARBY MD Mar 25, 2019 12:02
--- NOTE | 2019-03-25 13:59 | DS ---
DATE OF ADMISSION: 03/20/2019 DATE OF DISCHARGE: 03/23/2019 The patient was admitted with the diagnosis of kidney stone, was seen by Dr. Lainez in consultation. HIS IMPRESSION: A 78-year-old female. Has 8 x 7 mm causing moderate right hydronephrosis and right perinephric fat stranding. Patient was started on IV fluid, antibiotic, pain medication. Patient un derwent cystoscopy, right ureteral pyeloscopy, laser lithotripsy and insertion of right ureteral JJ s tent. The patient's cultures were negative and patient is afebrile and white count is normal. Patie nt was cleared to be discharged home. DISCHARGE DIAGNOSES: 1. Kidney stone. 2. Status post cystoscopy and JJ stent placement. 3. Hydronephrosis. 4. Hypernatremia. 5. Azotemia. 6. Anemia. 7. Hypertension. 8. Dyslipidemia. DISCHARGE MEDICATIONS: Reconciled. The patient to follow up with PCP and Dr. Lainez as an outpatie nt. THE PATIENT TO CONTINUE ON: 1. Tylenol. 2. Senna. 3. Tamsulosin. 4. Aspirin. 5. Losartan. 6. Metformin. 7. Metoprolol. 8. Continue water intake. DISPOSITION: The patient is stable at the time of discharge. Dictated By: LAUREN BOWEN/NTS Conf#: [id number] DID#: [id number]
== END 2019-03-23 20:08 | disposition home or self-care (01) | DRG 660 ==
LOC: 2NE 22:49
PROVIDERS: ADMIT Internal Medicine Nephrology; ATTEND Internal Medicine Nephrology
PROC: 0TC68ZZ Extirpation of Matter from Right Ureter, Via Natural or Artificial Opening Endoscopic (ICD-10-PCS; 2019-03-22)
PROC: 0T768DZ Dilation of Right Ureter with Intraluminal Device, Via Natural or Artificial Opening Endoscopic (ICD-10-PCS; 2019-03-22)
PROC: 0T908ZX Drainage of Right Kidney, Via Natural or Artificial Opening Endoscopic, Diagnostic (ICD-10-PCS; 2019-03-22)
PROC: 0TC08ZZ Extirpation of Matter from Right Kidney, Via Natural or Artificial Opening Endoscopic (ICD-10-PCS; principal; 2019-03-22 19:30)
DX: N13.6 Pyonephrosis (principal); E87.0 Hyperosmolality and hypernatremia; N17.9 Acute kidney failure, unspecified; D64.9 Anemia, unspecified; E11.9 Type 2 diabetes mellitus without complications; E78.5 Hyperlipidemia, unspecified; E04.1 Nontoxic single thyroid nodule; I10 Essential (primary) hypertension; M41.9 Scoliosis, unspecified; Z87.442 Personal history of urinary calculi; Z90.710 Acquired absence of both cervix and uterus; Z79.82 Long term (current) use of aspirin; Z79.84 Long term (current) use of oral hypoglycemic drugs
CPT/HCPCS: 71045; 74018; 74430; 80048; 80053; 82962; 83036; 83735; 84100; 85025; 85610; 85730; 87070; 87086; 88300; 93005; C2617; C9113; J0360; J0690; J0696; J1100; J1815; J1885; J2250; J2270; J2370; J2405; J3010; J7030; Q9967